=== PATIENT | male | born 1970 | race Caucasian/White ===

== ENCOUNTER 2020-02-12 09:54 | Outpatient (CLI) | payer BC ==
--- NOTE | 2020-02-12 11:53 | RAD ---
CERVICAL SPINE 5 VIEWS: Date: 02/12/2020 HISTORY: Neck pain. Patient hit head on bottom of pool 3 days ago. FINDINGS/IMPRESSION: Degenerative changes are seen. No acute fracture or subluxation is identified. If there is focal tenderness, neurologic deficit, or high clinical suspicion for injury to the cervic al spine, further evaluation with CT scan should be performed. POS: [facility]
== END 2020-02-12 09:55 | disposition home or self-care (01) ==
LOC: BICRAD 09:54
PROVIDERS: ATTEND Chiropractor
DX: M54.2 Cervicalgia (principal); M53.84 Other specified dorsopathies, thoracic region; M47.812 Spondylosis without myelopathy or radiculopathy, cervical region
CPT/HCPCS: 72050